=== PATIENT | female | born 1965 | race Caucasian/White ===

== ENCOUNTER 2017-05-09 22:09 | Emergency (ER) | payer OTHER ==
[~2017-05-09] VITALS: Ht 170.2 cm; Wt 90.7 kg
[2017-05-09] MEDS ORDERED: LEVOTHYROXINE (22:23)
[2017-05-09] MEDS ORDERED: LISINOPRIL (22:24)
[2017-05-09] MEDS ORDERED: LOVASTATIN (22:26)
[2017-05-09] MEDS ORDERED: ESTROGEN (22:27)
[2017-05-10 00:09] LABS: ABSOLUTE LYMPHOCYTES 2.1 thou/uL (0.8-5.3); ABSOLUTE MONOCYTES 0.8 thou/uL (0.0-1.2); ABSOLUTE NEUTROPHILS 9.6 thou/uL (1.6-8.1); BASOPHILS 0.4 %; EOSINOPHILS 0.4 %; HEMATOCRIT 38.3 % (37.0-47.0); HEMOGLOBIN 12.5 gm/dL (12.0-15.0); LYMPHOCYTES 16.6 %; MCH 28.5 pg (26.0-34.0); MCHC 32.6 g/dL (28.0-37.0); MCV 87.3 fL (80.0-100.0); MONOCYTES 6.5 %; NUCLEATED RBCS 0 /100WBC; PLATELET COUNT* 246 thou/uL (150-400); POLYS 76.1 %; RBC 4.39 mil/uL (4.20-5.00); WBC 12.6 thou/uL (4.0-11.0)
[2017-05-10 00:16] LABS: CREATININE 0.7 mg/dL (0.6-1.3); POTASSIUM 3.6 mmol/L (3.5-5.1)
[2017-05-10 00:21] LABS: ALBUMIN 3.7 g/dL (3.4-5.0); TOTAL BILIRUBIN 0.1 mg/dL (<0.1-1.0); TOTAL PROTEIN 7.1 g/dL (6.4-8.2)
[2017-05-10] MEDS ORDERED: NORCO 5-325 TA1 EACH PO (01:00)
[2017-05-10] MEDS ORDERED: ZOFRAN ODT4 MG PO (01:00)
[2017-05-10 02:12] VITALS: BP 130/91
[2017-08-04] MEDS ORDERED: ESTRACE1 MG PO (10:43)
[2017-08-04] MEDS ORDERED: SYNTHROID50 MCG PO (10:44)
[2017-08-04] MEDS ORDERED: COZAAR 50 MG TA50 M2 PO (10:45)
[2017-08-04] MEDS ORDERED: SYNTHROID75 MCG PO (10:45)
[2017-08-04] MEDS ORDERED: LOVASTATIN 20 M20 MG PO (10:46)
[2017-08-04] MEDS ORDERED: FOSAMAX 70 MG T70 MG PO (10:47)
[2017-08-11] MEDS ORDERED: HYDROCODONE-AP1 EAC6 PO (09:37)
== END 2017-05-10 02:12 | disposition home or self-care (01) ==
LOC: M.ERS 22:09
PROVIDERS: Personal Emergency Response Attendant
DX: S82.402A Unspecified fracture of shaft of left fibula, initial encounter for closed fracture (principal); S82.202A Unspecified fracture of shaft of left tibia, initial encounter for closed fracture; Z90.710 Acquired absence of both cervix and uterus; Z98.890 Other specified postprocedural states; Z88.1 Allergy status to other antibiotic agents; Z88.2 Allergy status to sulfonamides; Z88.5 Allergy status to narcotic agent; Z88.8 Allergy status to other drugs, medicaments and biological substances; W10.8XXA Fall (on) (from) other stairs and steps, initial encounter; Y93.89 Activity, other specified; Y92.89 Other specified places as the place of occurrence of the external cause; Y99.8 Other external cause status

== ENCOUNTER → 2017-06-02 | Outpatient (CLI) | payer OTHER ==
[~2017-06-02] MED LIST: COZAAR 50 MG TA50 M2 PO; ESTRACE1 MG PO; ESTROGEN; FOSAMAX 70 MG T70 MG PO; HYDROCODONE-AP1 EAC6 PO; LEVOTHYROXINE; LISINOPRIL; LOVASTATIN; LOVASTATIN 20 M20 MG PO; NORCO 5-325 TA1 EACH PO; SYNTHROID50 MCG PO; SYNTHROID75 MCG PO; ZOFRAN ODT4 MG PO
== END ==
LOC: M.RAD 09:05
DX: M85.88 Other specified disorders of bone density and structure, other site (principal); Z78.0 Asymptomatic menopausal state

== ENCOUNTER → 2017-08-11 | Day surgery (SDC) | payer OTHER ==
--- NOTE | 2017-11-03 21:57 | OP ---
[address] [address] OPERATIVE REPORT Name: JOJAMES L Room: [facility]#: [id number] Admission: 08/11/17 Attend Phys: Dm Quezada DO Discharge: Date of : 65 Report #: [id number] THIS REPORT FOR: //name// CC: Dm Vilaterribrigette PREOPERATIVE DIAGNOSIS: Painful hardware, left ankle. POSTOPERATIVE DIAGNOSIS: Painful hardware, left ankle. PROCEDURE: Removal of syndesmotic screw, left ankle. SURGEON: Dm Quezada DO WELFARE WORKER: George Parada DO ANESTHESIA: General. ANTIBIOTICS: Weight appropriate dosing Ancef IV preoperatively. BLOOD LOSS: Less than 5 mL. COMPLICATIONS: None. SPECIMENS: None. DRAINS: None. CONDITION: The patient is stable to PACU. INDICATIONS FOR PROCEDURE: The patient underwent open reduction and internal fixation of an unstable bimalleolar ankle fracture with syndesmotic disruption. She had a transmalleolar screw placed. I had multiple conversations with her about the possibility of leaving the screw in or taking it out. She says she felt like she was having pain between the bones and right where that screw was and she wished to have it removed. I went over with her the risks and complications associated with screw removal and surgery in general. Please see previous clinic notes in regards to the risks and complications associated with the surgery. After addressing questions and concerns she had regarding this, she acknowledged and accepted those risks and gave verbal and written consent to proceed. DESCRIPTION OF PROCEDURE: I marked the left lower extremity in the presence of the operative teams. All team members agreed. She was then transferred to the operative suite where a briefing was performed indicating correct patient, procedure, site, antibiotics. All team members agreed. She was transferred over to the operative table in supine position, well[place] [id number] OPERATIVE REPORT Name: JOJAMES L Room: [facility]#: [id number] Admission: 08/11/17 Attend Phys: Dm Quezada DO Discharge: Date of : 65 Report #: [id number] General anesthetic was administered. A well-padded tourniquet was placed proximally on the left lower extremity and the left lower extremity was sterilely prepped and draped in standard fashion. A timeout was performed indicating correct patient, procedure, site, antibiotics. All team members agreed. We esmarched the extremity and inflated the tourniquet to 250 mmHg, localized our incision by x-ray for screw removal. I made an incision over the previous incision to get down to the screw removal, blunt dissection down to the plate and screw in that area, engaged the screwdriver on to that screw, confirmed on x-ray that this was the syndesmotic screw. We then backed this out. It came out in its entirety with no hardware failure. We confirmed that it was fully removed with x-ray. We then performed a live stress examination of the syndesmosis performing intraoperative cotton external rotation stress view. Her syndesmosis showed no widening. It was well healed. We let the tourniquet down. Total tourniquet time was 15 minutes. Maintained hemostasis, irrigated with normal saline. Closure was with 2-0 Monocryl buried deep and a 3-0 nylon in a modified Allgower-Donati fashion. Debriefing performed confirming procedure, blood loss and that all counts were correct and final. She was placed in sterile dressings, successfully extubated and transferred off the operating table and taken to PACU in stable condition. POSTOPERATIVE COURSE AND EVALUATION: I spoke with her , let him know that went well, that her x-ray showed stable syndesmotic fixation. She may now weightbear as tolerated, maintain her dressings clean and intact. Do not get wet. We will see her back in 2 weeks planned for suture removal. They have access to my personal number and I encouraged them to call anytime with questions or concerns. <ELECTRONICALLY SIGNED> By: Dm Quezada DO 11/03/17 [id number] Quezada DO /nt
== END | disposition home or self-care (01) ==
LOC: M.SUR 05:57
DX: T84.84XA Pain due to internal orthopedic prosthetic devices, implants and grafts, initial encounter (principal); I10 Essential (primary) hypertension; E78.5 Hyperlipidemia, unspecified; E07.9 Disorder of thyroid, unspecified; Z98.890 Other specified postprocedural states; Z88.8 Allergy status to other drugs, medicaments and biological substances; Z79.899 Other long term (current) drug therapy; Z79.891 Long term (current) use of opiate analgesic; Z90.49 Acquired absence of other specified parts of digestive tract; Z90.710 Acquired absence of both cervix and uterus; Y83.8 Other surgical procedures as the cause of abnormal reaction of the patient, or of later complication, without mention of misadventure at the time of the procedure